=== PATIENT | female | born 1960 | race Caucasian/White ===

== ENCOUNTER → 2017-12-19 17:30 | Outpatient (CLI) | payer BC, SELFPAY ==
--- NOTE | 2017-12-19 17:35 | BI_ITS ---
MAMMOGRAPHY - BILATERAL SCREENING REASON FOR EXAM: Female, 57 years old. Routine annual screening examination. PERTINENT HISTORY: Aunt with breast cancer. TECHNIQUE: Digital bilateral breast jamie (3D mammographic acquisition) in the CC and MLO projections. 2-D mediolateral oblique (MLO) and craniocaudad (CC) views of both breasts were obtained. CAD: Full Field Digital Mammography with Computer Added Detection was performed. COMPARISON: Comparison is made with prior study dated November 07, 2016 and November 09, 2015. FINDINGS: Breast Composition: There are scattered areas of fibroglandular density. There is a questionable 6 mm slightly ill-defined nodule in the deep slightly lateral portion of the right breast as seen on the craniocaudad view. The patient will be recalled for additional views including compression spot imaging. Stable asymmetry of breast tissue were more breast tissue is seen in the retroareolar origin of the right breast as compared to the left side. Stable 7 mm well-defined nodule with a central notch in the upper lateral portion of the left breast. This is suggestive of a small lymph node. No other significant abnormalities are identified. BI/SCREENING MAMM (CAD), BILAT IMPRESSION: Proximal 6 mm nodule in the deep slightly lateral portion of the right breast seen on the craniocaudad view. The patient will be recalled for additional views including compression spot views in the craniocaudad projection and 90 degree lateral view of the right breast. Recall Side: Right Breast ASSESSMENT CATEGORY: BIRADS Category 0: Incomplete. Need additional imaging evaluation. A letter regarding these results will be sent to the patient by the facility within 30 days. Approximately 10% of breast cancers are not detected by mammography. A normal mammogram should not delay biopsy of a clinically suspicious abnormality. [id number] Electronically Signed: Jakob Sow MD at 8:32 EDT Tel [phone], Service support ,
== END ==
PROVIDERS: Family Provider Internal Medicine; PCP Internal Medicine; Visit Provider Obstetrics & Gynecology
DX: Z12.31 Encounter for screening mammogram for malignant neoplasm of breast (principal)
CPT/HCPCS: 77063; 77067

== ENCOUNTER → 2017-12-25 09:33 | Outpatient (CLI) | payer BC, SELFPAY ==
--- NOTE | 2017-12-25 09:35 | BI_ITS ---
MAMMOGRAPHY - UNILATERAL DIAGNOSTIC: RIGHT BREAST REASON FOR EXAM: Female, 57 years old. Abnormal screening mammogram. PERTINENT HISTORY: Aunt with breast cancer. TECHNIQUE: Compression spot views of the right breast as well as 90 degree lateral view were obtained. CAD: Full Field Digital Mammography with Computer Added Detection was performed. COMPARISON: Comparison is made with prior study dated December 19, 2017. FINDINGS: Breast Composition: There are scattered areas of fibroglandular density. The previously seen 6 mm nodular density in the deep lateral portion of the right breast is not as well seen at this time. Correlation with ultrasound is recommended. No other significant abnormalities are identified. BI/DIAG MAMM W/CAD, UNILAT IMPRESSION: Correlation with ultrasound of the right breast is recommended for further evaluation of the faint nodular density as described. ASSESSMENT CATEGORY: BIRADS Category 0: Incomplete. Need additional imaging evaluation. A letter regarding these results will be sent to the patient by the facility within 30 days. Approximately 10% of breast cancers are not detected by mammography. A normal mammogram should not delay biopsy of a clinically suspicious abnormality. Electronically Signed: Jakob Sow MD at 10:40 EDT Tel [phone], Service support ,
--- NOTE | 2017-12-25 10:30 | US_ITS ---
STUDY: ULTRASOUND BREAST - RIGHT REASON FOR EXAM: Female, 57 years old. Faint nodular density on the mammogram. TECHNIQUE: Axial and longitudinal images of the RIGHT breast were performed with a high resolution ultrasound transducer. COMPARISON: Comparison is made with prior mammogram done earlier in the day as well as December 19, 2017. FINDINGS: RIGHT Breast: The questionable nodular density is not seen. This most likely related to his fiber glandular tissue. There is evidence of a 1 cm x 1 cm x 0.5 cm hypoechoic density at the 1:00 position of the breast at 2 cm from the nipple. A bruise is seen at that site. This most likely represents a hematoma. US/Breast Limited Unilateral IMPRESSION: 1 cm x 1 cm x 0.5 cm fluid area suggestive of hematoma. This corresponds to the patient's bruise. ASSESSMENT CATEGORY: BIRADS Category 2: Benign. A letter regarding these results will be sent to the patient by the facility within 30 days. Electronically Signed: Jakob Sow MD at 11:11 EDT Tel [phone], Service support ,
== END ==
PROVIDERS: Family Provider Internal Medicine; PCP Internal Medicine; Visit Provider Obstetrics & Gynecology
DX: R92.8 Other abnormal and inconclusive findings on diagnostic imaging of breast (principal)
CPT/HCPCS: 76642; 77065

== ENCOUNTER → 2018-12-20 | Outpatient (CLI) | payer BC, SELFPAY ==
--- NOTE | 2018-12-20 10:43 | BI_ITS ---
MAMMOGRAPHY - BILATERAL SCREENING REASON FOR EXAM: Female, 58 years old. Routine annual screening examination. PERTINENT HISTORY: Aunt with breast cancer. TECHNIQUE: Digital bilateral breast kingston (3D mammographic acquisition) in the CC and MLO projections. 2-D mediolateral oblique (MLO) and craniocaudad (CC) views of both breasts were obtained. CAD: Full Field Digital Mammography with Computer Added Detection was performed. COMPARISON: Comparison is made with prior study December 19, 2017 and November 07, 2016. FINDINGS: Breast Composition: There are scattered areas of fibroglandular density. There are no dominant masses or suspicious calcifications. Stable asymmetry of breast tissue with more breast tissue seen in the retroareolar region of the right breast as compared to the left side. Stable small benign-appearing bilateral axillary lymph nodes. No other significant abnormalities are identified. There has been no significant change since the prior study. BI/SCREEN MAMM (CAD) W/KINGSTON BILAT IMPRESSION: Stable bilateral screening mammogram. Yearly follow-up mammogram recommended. (A) ASSESSMENT CATEGORY: BIRADS Category 2: Benign. A letter regarding these results will be sent to the patient by the facility within 30 days. Approximately 10% of breast cancers are not detected by mammography. A normal mammogram should not delay biopsy of a clinically suspicious abnormality. [id number] Electronically Signed: Jakob Sow, at 12:51 EDT , Service support ,
== END | disposition home or self-care (01) ==
LOC: OPBI 10:41
PROVIDERS: Family Provider Internal Medicine; PCP Internal Medicine; Referring Provider Obstetrics & Gynecology; Visit Provider Obstetrics & Gynecology
DX: Z12.31 Encounter for screening mammogram for malignant neoplasm of breast (principal)
CPT/HCPCS: 77063; 77067

== ENCOUNTER → 2019-10-08 | Outpatient (CLI) | payer BC, SELFPAY ==
[2019-10-08 18:49] LABS: Vitamin D,25 Hydroxy 26.3 ng/mL
[2019-10-16 15:37] LABS: HPV APTIMA, High Risk Negative (Negative)
== END | disposition home or self-care (01) ==
LOC: WOBLAB 16:16
PROVIDERS: PCP Internal Medicine; Visit Provider Obstetrics & Gynecology
DX: E55.9 Vitamin D deficiency, unspecified (principal); Z12.4 Encounter for screening for malignant neoplasm of cervix
CPT/HCPCS: 36415; 82306; 87624; 88175; G0145

== ENCOUNTER → 2019-12-23 | Outpatient (CLI) | payer BC, SELFPAY ==
--- NOTE | 2019-12-23 15:19 | BI_ITS ---
MAMMOGRAPHY - BILATERAL SCREENING REASON FOR EXAM: Female, 59 years old. Routine annual screening examination. PERTINENT HISTORY: Aunt with breast cancer. TECHNIQUE: Digital bilateral breast kingston (3D mammographic acquisition) in the CC and MLO projections. 2-D mediolateral oblique (MLO) and craniocaudad (CC) views of both breasts were obtained. CAD: Full Field Digital Mammography with Computer Added Detection was performed. COMPARISON: Comparison is made with prior study dated 12/20/2018 and 12/19/2017. FINDINGS: Breast Composition: There are scattered areas of fibroglandular density. There are no dominant masses or suspicious calcifications. Stable asymmetry of breast tissue were more breast tissue is seen in the retroareolar region of the right breast as compared to the left side. Stable small benign-appearing bilateral axillary lymph nodes. No other significant abnormalities are identified. There has been no significant change since the prior study. BI/SCREEN MAMM (CAD) W/KINGSTON BILAT IMPRESSION: Stable bilateral screening mammogram. Yearly follow-up mammogram recommended. (A) ASSESSMENT CATEGORY: BIRADS Category 2: Benign. A letter regarding these results will be sent to the patient by the facility within 30 days. Approximately 10% of breast cancers are not detected by mammography. A normal mammogram should not delay biopsy of a clinically suspicious abnormality. [id number] Electronically Signed: Jakob Sow, at 8:27 EDT , Service support ,
== END | disposition home or self-care (01) ==
LOC: OPBI 15:17
PROVIDERS: PCP Internal Medicine; Referring Provider Obstetrics & Gynecology; Visit Provider Obstetrics & Gynecology
DX: Z12.31 Encounter for screening mammogram for malignant neoplasm of breast (principal)
CPT/HCPCS: 77063; 77067

== ENCOUNTER 2020-01-13 09:57 | Day surgery (SDC) | payer BC, SELFPAY ==
[2020-01-13] VITALS (7 sets, daily range): BP systolic 146–179; BP diastolic 70–90; PULSE 52–59; RESP 16–18; TEMP 36.6–36.8; O2SAT 99–100
[2020-01-13] MEDS: Lactated Ringers 1,000 ML 100 ML IV (10:29)
--- NOTE | 2020-01-13 11:12 | HP.PCM_ITS ---
History of Present Illness Date of Admission: 01/13/20 The patient is a 59 year old F presents for screening colonoscopy. Past Medical/Surgical History - Planned Operation Planned Operative Procedure/s: cscope open access Date of Operative Procedure: 01/13/20 Permit Signed: No S.O.S: No Is This Patient Having a Total Joint: No - Previous Hospitalizations/Surgeries HX Hospitalizations: No HX of Surgeries: right hand surgery. left ankle surgery. gallbladder Any Problems With Anesthesia: Yes - n,v You/Your Family Experience Fever (Hyperthermia) With Anes: No Cholinesterase deficiency: No - Cardiovascular Hx Chest Pain within Last 2 months: No Hx of Irregular Heartbeat and/or Afib: No - palpitations prn Hx Heart Attack: No Hx Congestive Heart Failure: No Hx Rheumatic Fever: No Hx Hypertension: No - questionable pulmonary htn Hx Internal Defibrillator: No Hx Pacemaker: No Hx Cardiac Catheterization: No Hx Cardiac Surgery/Stents/Etc.: No Hx Stress Test: Yes - 2014 and echo 2014 HX Edema: Yes - lower legs prn Hx Pain in Legs when Walking/Leg Cramps: No - Respiratory Chronic Cough: No HX of Shortness of Breath: Yes - slightly sob with 2 flights of stairs Hoarseness: No Hx Chronic Obstructive Pulmonary Disease (COPD): No Hx Asthma: No Hx Emphysema: No Hx Sleep Apnea: No Hx Oxygen Use at Home: No Hx Respiratory Tract Infection/Cold (presently): No Do You Snore Loudly (louder than talking or can be heard): Yes Do You Often Feel Tired/ Fatigued/ Sleepy Dring Daytime?: No Has Anyone Observed You Stop Breathing During Sleep?: No Result (for STOP score): Negative Hx Smoking: Yes - quit at age 25 Smoking Status: Former smoker - Gastrointestinal Hx Gastroesophageal Reflux: Yes - in the past Controlled With Meds: No Hx Gastrointestinal Disorders: No Hx Gastrointestinal Bleed: No Hx Ulcer: No Hx Hiatal Hernia: No Difficulty Chewing/Swallowing: No Recent Onset of Swallowing Problems: No Special diet followed at home: No Hx Unplanned Weight Loss of 20#: No HX Unplanned Weight Gain of 20#: No - Neurological Hx Seizures: No HX Syncope/Blackout Spells/Unconsciousness: No Hx CVA/Stroke: No Hx Transient Ischemic Attacks (TIA): No Hx Multiple Sclerosis: No Hx Parkinson's Disease: No Hx Head/Neck Injury: Yes - concussion 2007 Hx Headaches: No Hx Back Injury/Pain: No Recent Onset of Speech Difficulty: No Restless Legs: No Does patient have nerve stimulator: No Patient instructed to have device shut off: No Rep notified?: No - Blood Disorder Hx Leukemia: No Bleeding Tendencies: No Hx Deep Vein Thrombosis: No Hx High Cholesterol: No Blood Transmitted Disease: No Hx Hepatitis: No Hx Cirrhosis: No Hx Anemia: No Hx Blood Disorders: No - Reproduction : No Is Patient Lactating: No Hx Hysterectomy: No Hx Tubal Ligation: No Are You Post Menopause: Yes - Genitourinary Hx Renal Disease: No - incontinence - Musculoskeletal Hx Arthritis: No Hx Rheumatoid Arthritis: No Hx Gout: No Recent Onset of an Orthopedic Problem: No - Endocrine Hx Diabetes: No Thyroid Disease: No Hx Steroid Therapy: No - Psycho/Social Hx Substance Use: Yes - marijuna use in the past Hx Alcohol Use: Yes - social Hx Anxiety: Yes - no meds Hx Depression: No Mental Illness: No Hx Dementia: No - Miscellaneous Hx Cancer: No Recent Exposure to Contagious Disease: No Active MRSA: No Hx of C-Diff: No Any Loose Teeth: No Allergies acetaminophen [From Vicodin] Adverse Reaction (Verified 01/13/20 10:21) Vomiting erythromycin base Adverse Reaction (Verified 01/13/20 10:21) Nausea hydrocodone [From Vicodin] Adverse Reaction (Verified 01/13/20 10:21) Vomiting - Discharge Is Pt Admitted From a Skilled Nursing, or a Intermediate: No After D/C, Where Do you Plan to Go: Return Home - Physical Exam Vitals/I&O's: Vital Signs Temp Pulse Resp Pulse Ox 98.2 F 59 L 16 95 01/13/20 10:22 01/13/20 10:22 01/13/20 10:22 01/13/20 10:22 Oxygen Delivery Method Room Air Weight: 208 lb 12.444 oz Body Mass Index (BMI) 35.8 General: Alert, Oriented x3 Lungs: Clear to auscultation Cardiovascular: Regular rate, Regular Rhythm, No murmurs Abdomen: Bowel Sounds Present, Soft, Non Tender, Non-Distended Current Medications Lactated Ringer's () 1,000 mls @ 100 mls/hr IV .Q10H PATSY Last Admin: 01/13/20 10:29 Dose: 100 mls/hr Documented by: Assessment/Plan Assessment: Screening colonoscopy Plan: Colonoscopy Surgery Risks - Colonoscopy Risks Include but are not Limited To: Risks include but are not limited to: Bleeding, perforation requiring further surgery, inability to complete colonoscopy requiring barium enema.
--- NOTE | 2020-01-13 11:16 | OP.COLON_ITS ---
Patient Name: Rachna Sears Procedure Date: 01/13/2020 10:37 AM Date of : 1960 Age: 59 Procedure: Colonoscopy Indications: Screening for colorectal malignant neoplasm Providers: Mitchell Lassiter MD Referring MD: Madelyn Sandoval Medicines: See the Anesthesia note for documentation of the administered medications Patient Profile: This is a 59 year old female. Refer to note in patient chart for documentation of history and physical. Last Colonoscopy: none. The patient's first colonoscopy is today. Complications: No immediate complications. Procedure: Pre-Anesthesia Assessment: - Prior to the procedure, a History and Physical was performed, and patient medications and allergies were reviewed. The patient's tolerance of previous anesthesia was also reviewed. The risks and benefits of the procedure and the sedation options and risks were discussed with the patient. All questions were answered, and informed consent was obtained. Prior Anticoagulants: The patient has taken no previous anticoagulant or antiplatelet agents. ASA Grade Assessment: II - A patient with mild systemic disease. After reviewing the risks and benefits, the patient was deemed in satisfactory condition to undergo the procedure. After I obtained informed consent, the scope was passed under direct vision. Throughout the procedure, the patient's blood pressure, pulse, and oxygen saturations were monitored continuously. The adult colonoscope was introduced through the anus and advanced to the cecum, identified by appendiceal orifice and ileocecal valve. The colonoscopy was performed without difficulty. The patient tolerated the procedure well. The quality of the bowel preparation was good. Scope In: 10:54:04 AM Scope Withdrawal Time 0 hours 8 minutes 38 seconds Scope Out: 11:10:25 AM Total Procedure Duration Time 0 hours 16 minutes 21 seconds Findings: Scattered small-mouthed diverticula were found in the sigmoid colon, descending colon and transverse colon. No biopsies or other specimens were collected for this exam. Non-bleeding internal hemorrhoids were found during retroflexion. The hemorrhoids were mild and small. The exam was otherwise without abnormality. Impression: - Diverticulosis in the sigmoid colon, in the descending colon and in the transverse colon. No specimens collected. - Non-bleeding internal hemorrhoids. - The examination was otherwise normal. Recommendation: - Discharge patient to home. - Resume previous diet. - Continue present medications. - Repeat colonoscopy in 10 years for screening purposes. - Return to primary care physician (date not yet determined). Procedure Code(s): --- Professional --- 10145, Colonoscopy, flexible; diagnostic, including collection of specimen(s) by brushing or washing, when performed (separate procedure) Diagnosis Code(s): --- Professional --- Z12.11, Encounter for screening for malignant neoplasm of colon K64.8, Other hemorrhoids K57.30, Diverticulosis of large intestine without perforation or abscess without bleeding CPT copyright 2017 [employer]. All rights reserved. The codes documented in this report are preliminary and upon maternal fetal physician review may be revised to meet current compliance requirements. MD Mitchell Silva MD 01/13/2020 11:15:18 AM This report has been signed electronically. Number of Addenda: 0 Note Initiated On: 01/13/2020 10:37 AM
--- NOTE | 2020-01-13 11:16 | OP.CCLET_ITS ---
01/13/2020 Madelyn Sandoval [address] [place] [address] Re : Colonoscopy procedure for Rachna Sears Dear Dr. Sandoval This procedure was performed on Monday, January 13, 2020. My impressions and recommendations are as follows: Impressions : - Diverticulosis in the sigmoid colon, in the descending colon and in the transverse colon. No specimens collected. - Non-bleeding internal hemorrhoids. - The examination was otherwise normal. Recommendations : - Discharge patient to home. - Resume previous diet. - Continue present medications. - Repeat colonoscopy in 10 years for screening purposes. - Return to primary care physician (date not yet determined). My findings are described in the full procedure note, which is enclosed. If I can be of further assistance, please feel free to contact me at Doctor phone number(s): , Fax: [phone], Work: . Sincerely, MD Mitchell Silva MD 01/13/2020 11:15:18 AM This report has been signed electronically.
== END 2020-01-13 12:09 | disposition home or self-care (01) ==
LOC: EN 09:58
PROVIDERS: Anesthesiology; PCP Internal Medicine; Referring Provider Internal Medicine; Visit Provider Surgery
PROC: 0DJD8ZZ Inspection of Lower Intestinal Tract, Via Natural or Artificial Opening Endoscopic (ICD-10-PCS; CPT 45378; principal; 2020-01-13 10:55)
DX: Z12.11 Encounter for screening for malignant neoplasm of colon (principal); K57.30 Diverticulosis of large intestine without perforation or abscess without bleeding; K64.8 Other hemorrhoids; Z20.828 Contact with and (suspected) exposure to other viral communicable diseases; Z87.891 Personal history of nicotine dependence
CPT/HCPCS: 45378; 87635; C9803; J7120; U0003

== ENCOUNTER → 2020-12-23 11:54 | Outpatient (CLI) | payer BC, SELFPAY ==
--- NOTE | 2020-12-23 11:55 | BI_ITS ---
MAMMOGRAPHY - BILATERAL SCREENING REASON FOR EXAM: Female, 60 years old. Routine annual screening examination. PERTINENT HISTORY: Aunt with breast cancer. TECHNIQUE: Digital bilateral breast kingston (3D mammographic acquisition) in the CC and MLO projections. 2-D mediolateral oblique (MLO) and craniocaudad (CC) views of both breasts were obtained. CAD: Full Field Digital Mammography with Computer Added Detection was performed. COMPARISON: Comparison is made with prior study of 12/23/2019 and 12/20/2018. FINDINGS: Breast Composition: The breasts are heterogeneously dense, which may obscure small masses. There are no dominant masses or suspicious calcifications. Once again, there is stable asymmetry of breast tissue where more breast tissue is seen in the retroareolar region of the right breast as compared to the left side. Stable small benign-appearing bilateral axillary lymph nodes. No other significant abnormalities are identified. There has been no significant change since the prior study. BI/SCRN MAMM (CAD)W/KINGSTON BILAT IMPRESSION: Stable bilateral screening mammogram. Yearly follow-up mammogram recommended. (A) ASSESSMENT CATEGORY: BIRADS Category 2: Benign. A letter regarding these results will be sent to the patient by the facility within 30 days. Approximately 10% of breast cancers are not detected by mammography. A normal mammogram should not delay biopsy of a clinically suspicious abnormality. [id number] Electronically Signed: Jakob Sow MD at 13:25 EDT , Service support ,
== END ==
PROVIDERS: PCP Internal Medicine; Referring Provider Obstetrics & Gynecology; Visit Provider Obstetrics & Gynecology
DX: Z12.31 Encounter for screening mammogram for malignant neoplasm of breast (principal)
CPT/HCPCS: 77063; 77067

== ENCOUNTER 2021-02-24 12:09 | Outpatient (CLI) | payer BC, SELFPAY ==
[2021-02-24 12:31] VITALS: BP 151/72; PULSE 83; RESP 16; TEMP 37.5; O2SAT 98; BMI 37.2
[2021-02-24] MEDS: 0.9% Saline Lock 10 ML Syringe IV (12:31)
[2021-02-24 13:08] VITALS: BP 146/94; PULSE 81; RESP 16; TEMP 36.6; O2SAT 99
[2021-02-24 14:02] VITALS: BP 135/81; PULSE 66; RESP 16; TEMP 36.6; O2SAT 98
== END 2021-02-24 14:10 | disposition home or self-care (01) ==
LOC: MS3OUT 12:12 → MS3 12:12
PROVIDERS: PCP Internal Medicine; Referring Provider Nurse Practitioner Adult Health; Visit Provider Nurse Practitioner Adult Health
DX: Z23 Encounter for immunization (principal); U07.1 COVID-19
CPT/HCPCS: J7050; M0245; Q0245; A4216

== ENCOUNTER → 2021-12-24 | Outpatient (CLI) | payer BC, SELFPAY ==
--- NOTE | 2021-12-24 07:47 | BI_ITS ---
MAMMOGRAPHY - BILATERAL SCREENING REASON FOR EXAM: Female, 61 years old. Routine annual screening examination. PERTINENT HISTORY: Aunt with breast cancer. TECHNIQUE: Digital bilateral breast kingston (3D mammographic acquisition) in the CC and MLO projections. 2-D mediolateral oblique (MLO) and craniocaudad (CC) views of both breasts were obtained. CAD: Full Field Digital Mammography with Computer Added Detection was performed. COMPARISON: Comparison is made with prior study 12/23/2020 12/23/2019. FINDINGS: Breast Composition: The breasts are heterogeneously dense, which may obscure small masses. There are no dominant masses or suspicious calcifications. Stable asymmetry of breast tissue where more breast tissue is seen in the retroareolar region of the right breast as compared to the left side. During bilateral axillary lymph nodes. No other significant abnormalities are identified. There has been no significant change since the prior study. BI/SCRN MAMM (CAD)W/KING[place]ON BILAT IMPRESSION: Stable bilateral screening mammogram. Yearly follow-up mammogram recommended. (A) ASSESSMENT CATEGORY: BIRADS Category 2: Benign. A letter regarding these results will be sent to the patient by the facility within 30 days. Approximately 10% of breast cancers are not detected by mammography. A normal mammogram should not delay biopsy of a clinically suspicious abnormality. [id number] Electronically Signed: Jakob Sow MD at 8:59 EDT ,
== END | disposition home or self-care (01) ==
LOC: OPBI 07:46
PROVIDERS: PCP Internal Medicine; Visit Provider Student in an Organized Health Care Education/Training Program
DX: Z12.31 Encounter for screening mammogram for malignant neoplasm of breast (principal)
CPT/HCPCS: 77063; 77067

== ENCOUNTER 2022-11-24 09:51 | Day surgery (SDC) | payer BC, SELFPAY ==
[2022-11-24] VITALS (7 sets, daily range): BP systolic 130–154; BP diastolic 51–67; PULSE 49–56; RESP 16; TEMP 36.1; O2SAT 98–100; BMI 38.0
[2022-11-24] MEDS: Lactated Ringers 1,000 ML 15 ML IV (10:42)
--- NOTE | 2022-11-24 11:26 | PCM.HP.BLA ---
History and Physical Date of Admission: 11/24/22 Chief complaint: Postmenopausal bleeding History present illness: 62-year arrives for scheduled hysteroscopy dilation curettage. No medical changes since last seen. All questions answered and consent signed. Obstetric history: with a history of a section Past medical history: None Medications: None Allergies: Erythromycin, Vicodin Past surgical history: Hand, ankle, Ema Karolina, cholecystectomy, section Social history: Former smoker, denies alcohol or drug use Family history: Denies history DVT or PE Review of systems: Besides above pertinent positives a full review of systems was performed and found to be negative Physical exam: Vitals: Blood pressure 154/51 pulse 52 respiratory rate 16 temperature 97.0 ?F SPO2 90% on room air General: Normal-appearing no acute distress HEENT: Normocephalic/atraumatic no cervical lymphadenopathy Cardiac/respiratory: No use of accessory muscles, nonlabored breathing Abdomen: Soft, nontender, nondistended Extremities: No peripheral edema normal peripheral pulses Psych: Normal affect normal demeanor nonpressured speech Assessment and plan: 62-year-old scheduled for hysteroscopy, dilation and curettage. Educated patient on risk benefits alternatives of procedure include but are not limited to visceral or vascular injury, prolonged hospitalization, blood loss need for transfusion, reoperation. Patient state understanding wish to proceed. All questions were answered and consent was signed.
--- NOTE | 2022-11-24 11:50 | EMB_PTH ---
PATIENT: JUMA MACEDO LOC: [facility] [place] U#:[id number] AGE/SX: 62/F ROOM: RE11/24/[address]: Dr. Roshan Esparza MD : 1960 BED: DIS: 11/24/2022 SPEC #: [id number] RECD: 11/24/22 17:11 STATUS: TALITA RESimi #: [id number] MARK: 11/24/22 11:[address]: Roshan Esparza DEPT: SURGICAL PATHOLOGY RECD BY: Tammi Dobbins ENTERED: 11/25/22 09:14 SP TYPE: ENDOM BX/C LOBITO DR: Dr. Madelyn Sandoval DO Tissues: Endometrium, NOS Procedures: Surgery Specimen Level IV HEADER OPERATION: Hysteroscopy, dilation and curettage PRE-OP DIAGNOSIS: Postmenopausal bleeding TISSUE SUBMITTED: Endometrial curettings MICROSCOPIC DIAGNOSIS Endometrium, curettings: Scant strips of benign superficial glandular mucosa. Rare strips of benign superficial squamous mucosa. AM:raj 11/29/2022 MICROSCOPIC DESCRIPTION Slides are reviewed. GROSS DESCRIPTION Received in fixative is one container labeled with the patient's name and designated endometrial curettings. The specimen consists of multiple fragments of hemorrhagic soft tissue mixed with mucoid tissue that in aggregate measure 2.5 x 1.5 x 0.2 cm. The specimen is totally submitted in one cassette. / SJ:raj 11/25/2022 TC:5 CPT: 22421
--- NOTE | 2022-11-24 12:37 | DCINST_ITS ---
Discharge Instructions Diet Discharge Diet: No restrictions Activity Discharge Activity: Return to Normal Activity and May Shower May resume sexual activity in: 6-8 weeks Weight Bearing Status: Weight bearing as tolerated Dressing / Incision Call your doctor if your incision/area has: Continuous Slow Oozing and Foul Smelling Discharge Call your doctor if you observe: Fever of 101 or Higher, Shortness of breath and Chest pain Follow Up Care Please Follow Up With: Roshan Esparza MD When: 2 weeks postoperatively Test Results: Test results from this visit will be discussed in further detail at your follow- up appointment, if applicable. Discharge Plan Admission Attending Provider: Roshan Esparza Primary Care Provider: Madelyn Sandoval Discharge Orders/Prescriptions Prescriptions: No Action docusate sodium 100 MG capsule 100 mg PO QHS milk thistle seed extract 175 MG capsule 175 mg PO DAILY L.acidoph, paracasei,B. lactis 1 EACH capsule 1 ea PO QHS choline bitartrate 300 MG tablet extended release 2 tab PO DAILY Cholecalciferol (Vitamin D3) [Vitamin D3] 5,000 UNIT capsule 5,000 unit PO DAILY Gastrofiber 1 cap PO DAILY Min-Chex 1 cap PO DAILY multivitamin [Daily Multi-Vitamin] Tablet 2 tab PO DAILY omega 0-lcv-hiv-fish oil 900 (300-647) mg capsule,delayed release(DR/EC) 1 cap PO DAILY Referrals / Follow Up: Madelyn Sandoval DO [Primary Care Provider] - Disposition Disposition (needs filled in before D/C Order can be placed): Home, Self Care
--- NOTE | 2022-11-24 12:38 | PCM.OPRPT ---
Report of Operation Date of Procedure: 11/24/22 Pre-Operative Diagnosis: Postmenopausal bleeding Post-Operative Diagnosis: Postmenopausal bleeding Surgery/Procedure Performed:: Hysteroscopy, dilation curettage Description of Surgical Findings:: Surgeon: Roshan Esparza MD Anesthesia: MAC EBL: 5 cc Urine output: 100 cc none IV fluids: 400 cc Complications: None Specimen: Endometrial curettings Findings: Hysteroscopy revealed thickened irregular endometrial lining. Consent: Patient with postmenopausal bleeding elects for hysteroscopy, dilation curettage. Patient understands risk of the procedure include but are not limited to visceral or vascular injury, prolonged hospitalization, blood loss need for transfusion, reoperation. Patient state understanding wish to proceed. All questions were answered and consent was signed. Procedure: Patient was brought back to the OR where MAC anesthesia was found to be adequate. Patient was prepared and draped in a dorsolithotomy position with yellowfin stirrups. A weighted speculum placed in the posterior aspect of the vagina and cervical dilators were used to dilate cervix. Hysteroscope was inserted and above findings were noted. Sharp endometrial curettings were performed in all quadrants of the uterus and sent to pathology. Good hemostasis was noted. All counts were correct x2. Patient tolerated procedure well and was brought to recovery in stable condition.
== END 2022-11-24 13:45 | disposition home or self-care (01) ==
LOC: SDC 09:52 → AC 10:16
PROVIDERS: PCP Internal Medicine; Referring Provider Obstetrics & Gynecology; Visit Provider Obstetrics & Gynecology
PROC: 0UDB8ZZ Extraction of Endometrium, Via Natural or Artificial Opening Endoscopic (ICD-10-PCS; CPT 58558; principal; 2022-11-24 11:40)
DX: N95.0 Postmenopausal bleeding (principal); Z87.891 Personal history of nicotine dependence
CPT/HCPCS: 58558; 00952; 88305; J7120

== ENCOUNTER → 2023-03-02 | Outpatient (CLI) | payer BC, SELFPAY ==
--- NOTE | 2023-03-02 08:56 | ECHOCS_ITS ---
Reason For Study: PHTN Procedure This was a 2D Doppler, Color Flow transthoracic echocardiogram. The study was technically difficult. Contrast injection was performed. Exam performed in department. Left Ventricle Normal size and thickness. The left ventricular ejection fraction is 65 %. Stage 1 diastolic dysfunction. Right Ventricle Normal right ventricle. Atria The left atrium is mildly enlarged. Normal right atrium. Mitral Valve Mild (1+) mitral valve insufficiency. Tricuspid Valve Right ventricular systolic pressure estimated to be 34 mmHg. Mild tricuspid valve insufficiency. Pulmonic Valve The pulmonic valve is not well visualized. Pericardium/Pleural No pericardial effusion. Medication 22 gauge I.V. with prn adaptor inserted into left arm. Diluted definity 2.5ml given slow IV push to enhance endocardial definition. MMode/2D Measurements & Calculations LVIDd: 5.3 cm IVSd: 0.83 cm Ao root diam: 3.1 cm LVIDs: 3.9 cm LVPWd: 1.0 cm LA dimension: 4.2 cm RVDd: 3.5 cm FS: 25.8 % LAV(MOD-bp): 47.4 ml LVAd ap4: 34.7 cm2 SV(MOD-sp4): 68.9 ml LAV(MOD-bp) Indexed: 23.7 ml/m2 LVLd ap4: 8.0 cm LAV(MOD-sp2): 48.5 ml EDV(MOD-sp4): 124.0 ml LAV(MOD-sp4): 43.2 ml EDV(sp4-el): 128.4 ml LVAs ap4: 20.7 cm2 LVLs ap4: 6.4 cm ESV(MOD-sp4): 55.1 ml ESV(sp4-el): 56.9 ml EF(MOD-sp4): 55.5 % EF(sp4-el): 55.6 % SV(sp4-el): 71.4 ml LA A4 area: 16.6 cm2 RA A4 area: 16.2 cm2 TAPSE: 2.4 cm Time Measurements MV dec time: 0.17 sec Doppler Measurements & Calculations MV E max samuel: 65.1 cm/sec Lat Peak E' Samuel: 9.2 cm/sec Med Peak E' Samuel: 8.5 cm/sec MV A max samuel: 100.3 cm/sec E/E' lat: 7.1 E/E' med: 7.6 MV E/A: 0.65 MV V2 max: 112.2 cm/sec MV P1/2t max samuel: 92.8 cm/sec Ao V2 max: 139.0 cm/sec MV max P.0 mmHg MV P1/2t: 66.8 msec Ao max P.7 mmHg MV V2 mean: 49.2 cm/sec MV dec slope: 407.0 cm/sec2 Ao V2 mean: 97.2 cm/sec MV mean P.2 mmHg Ao mean P.3 mmHg MV V2 VTI: 33.5 cm MVA(P1/2t): 3.3 cm2 Ao V2 VTI: 37.8 cm AV (velocity ratio): 0.76 LV V1 max: 113.6 cm/sec PA V2 max: 127.9 cm/sec TR max samuel: 246.4 cm/sec LV V1 max P.2 mmHg PA V2 mean: 79.0 cm/sec TR max P.3 mmHg LV V1 mean P.7 mmHg LV V1 mean: 76.4 cm/sec LV V1 VTI: 28.7 cm ECHO/Echo Complete W/ Contrast Interpretation Summary The left ventricular ejection fraction is 65 %. Stage 1 diastolic dysfunction. Right ventricular systolic pressure estimated to be 34 mmHg. Mild tricuspid valve insufficiency. The left atrium is mildly enlarged. Mild (1+) mitral valve insufficiency. Ordering Physician: Madelyn Sandoval Referring Physician: Madelyn Sandoval Performed By: Ruslan Beasley RCS
== END | disposition home or self-care (01) ==
LOC: CVS 08:54
PROVIDERS: PCP Internal Medicine; Referring Provider Internal Medicine; Visit Provider Internal Medicine
DX: I27.20 Pulmonary hypertension, unspecified (principal)
CPT/HCPCS: 93306; Q9957; A4216; C8929

== ENCOUNTER → 2023-04-05 | Outpatient (CLI) | payer BC, SELFPAY ==
--- NOTE | 2023-04-05 09:33 | BD_ITS ---
STUDY: DUAL ENERGY X-RAY ABSORPTIOMETRY / DXA REASON FOR EXAM: Female, 62 years old. [id number] TECHNIQUE: Bone Mineral Density (BMD) measurements of lumbar spine and bilateral hips were obtained. COMPARISON: None. FINDINGS: Lumbar Spine (L1-L4): g/cm2 (1.049) / T-score (0.0) / Z-score (1.8) Findings are suggestive of normal bone density with a low fracture risk. Left Femur Total: g/cm2 (0.971) / T-score (0.2) / Z-score (1.4) Left Femoral Neck: g/cm2 (0.724) / T-score (-1.1) / Z-score (0.4) Right Femur Total: g/cm2 (0.919) / T-score (-0.2) / Z-score (1.0) Right Femoral Neck: g/cm2 (0.749) / T-score (-0.9) / Z-score (0.6) BD/Dexa Bone Density Study IMPRESSION: The patient is considered osteopenic as outlined below according to World Hood Organization (WHO) criteria with a low fracture risk. Reference Information: The T-score is the number of standard deviations above or below the standard which is normal for young adults at their peak bone mineral density. The World Health Organization (WHO) interprets the T-scores as follows: Above -1 Normal bone density Between -1 and -2.5 Osteopenia Equal to / or below -2.5 Osteoporosis As a practical clinical guideline, osteopenia may be graded as follows: Mild -1 through -1.5 Moderate -1.6 through -2.0 Severe -2.1 through -2.4 The Z-score is the number of standard deviations above or below age-matched controls. A Z-score of less than -1.5 would be considered abnormal. References: 1. NIH Osteoporosis and Related Bone Diseases www osteo.org 2. International Society for Clinical Densitometry www iscd.org 3. National Osteoporosis Foundation www nof.org Electronically Signed: Jakob Sow MD at 13:56 EST ,
== END | disposition home or self-care (01) ==
LOC: OPBD 09:26
PROVIDERS: PCP Internal Medicine; Referring Provider Internal Medicine; Visit Provider Internal Medicine
DX: Z78.0 Asymptomatic menopausal state (principal)
CPT/HCPCS: 77080

== ENCOUNTER → 2025-01-20 | Outpatient (CLI) | payer MEDICARE, SELFPAY ==
--- NOTE | 2025-01-20 10:41 | RAD_ITS ---
PROCEDURE: SHOULDER MIN 2 VIEWS 01/20/2025 REASON FOR EXAM: SHOULDER PAIN,RIGHT TECHNIQUE: Procedure Code: RADSH Modality: DX Procedure: SHOULDER 4 VIEWS Laterality: Right COMPARISON: None provided RAD/Shoulder min 2 Views IMPRESSION: Mild right acromioclavicular joint degenerative changes are seen. Calcifications superior to the right humeral head and adjacent to the right hum eral head greater tuberosity most likely represent calcific tendinosis. The right glenohumeral joint is otherwise unremarkable in appearance No acute fracture or dislocation is seen. Reading Location: [place] [id number]
[2025-01-20 13:04] LABS: Ferritin 127 ng/mL (22-378); Hepatitis C Antibody Nonreactive (Nonreactive); Vitamin B12 397 pg/mL (180-914)
== END | disposition home or self-care (01) ==
LOC: MTLAB 10:31
PROVIDERS: PCP Internal Medicine; Referring Provider Internal Medicine; Visit Provider Internal Medicine
DX: Z11.59 Encounter for screening for other viral diseases (principal); R53.83 Other fatigue; M25.511 Pain in right shoulder
CPT/HCPCS: 36415; 73030; 82607; 82728; 86803

== ENCOUNTER 2025-03-14 10:30 | Outpatient (RCR) | payer MEDICARE, SELFPAY ==
--- NOTE | 2025-02-10 19:11 | HP.PTEVAL ---
Patient's Visit Information Visit Information Visit Information: JUMA MACEDO is a 64 year old F referred to Physical Therapy by Dr. Madelyn Sandoval DO with a diagnosis of R SHLD PAIN. Date of Evaluation: 02/10/25 Physical Therapist: Kelsey Walker PT, Cert MDT Visit Plan Frequency: 2-3x /Week Duration: 4-6 Weeks Plan: 1. INITIALLY WORK ON RESTORING PAIN-FREE ROM R SHLD. - TABLE/WALL SLIDES INTO FLEXION/SCAPTION, CROSS BODY STRETCH, PEC DOORWAY STRETCH. 2. BEGIN GENTLE TENDON LOADING (AVOID ANY SHARP PAIN, PAIN < OR = 2/10) - ISO ER (ELBOW AT SIDE), ISO IR, ISO SCAPTION, ISO EXTENSION. 3. IMPROVE SCAPULAR MECHANICS - SCAP SQUEEZES, SEATED OR WALL "PUSH-UP PLUS", LOWER TRAP SETS - "Y'S" WITHOUT WEIGHT. AFTER 2 WEEKS (2-6 WKS) WORK ON PROGRESSING MECHANICAL LOAD WITH THERABANDS TO PROMOTE TENDON HEALING. Subjective Subjective: Work/Leisure: WORKING PART-TIME ABOUT 16 HRS A WEEK FOR [employer] (WAS OFF ABOUT 1.5 YEARS) Disability: NO Present symptoms: R SHLD PAIN. INTERMITTENT R ARM AND FOREARM PAIN/ACHE NUMBNESS AND TINGLING. DENIES HAND SYMPTOMS. NO NECK PAIN. Present since: OVER A YEAR AGO. Getting Better, Getting Worse or Staying the Same: STAYING THE SAME Pain Scale: Worst - 8/10 Least - 0/10 Currently: /10 Commenced as a result of: NO APPARENT REASON Symptoms at onset: R SHLD ACHING Worse: REACHING, STIRRING, GETTING THINGS OUT OF KETTLE AT WORK, WAKING UP WITH ARM OVER-HEAD, REACHING FOR THE RADIO, EVENING IS WORSE Better: BLUE EMU, ICE, [place], MOVEMENT IS BETTER THAN STILL. Disturbed sleep: YES Previous history/Previous treatment: EPISODE ABOUT 25 YEARS AGO THEN RESOLVED WITH WITH ANTI-INFLAMMATORY VIOXX UNTIL ABOUT A YEAR OR SO AGO. This episode: NONE Accidents: NO Unexplained weight loss: NO Imaging: IMPRESSION: Mild right acromioclavicular joint degenerative changes are seen. Calcifications superior to the right humeral head and adjacent to the right humeral head greater tuberosity most likely represent calcific tendinosis. The right glenohumeral joint is otherwise unremarkable in appearance No acute fracture or dislocation is seen. PMH/Recent major surgery: H/O NECK PAIN FROM WORK RELATED ACTIVITES - ONE CHIROPRACTIC VISIT. MAINLY SELF TREATED. OSTEOPENIA - NEW PER PATIENT REPORT Anxiety Marijuana use Alcohol use History of steroid therapy Bladder disease Fatty liver Injury of head and neck Heartburn Shortness of breath on exertion Former smoker History of diverticulitis History of edema History of Holter monitoring History of echocardiogram History of stress test History of irregular heartbeat Hx of fracture of ankle Hx of fracture of wrist Encounter for screening for COVID-19 Hx of foot surgery Objective Objective: Sitting Posture/Standing Posture: FH. RSHL'S - L>R. NO TORTICOLLIS. Active Correction of posture: ABLE TO PARTIALLY CORRECT BUT NOT MAINTAIN - NE Other Observations: INDEP GAIT AND TRANSFERS. Sensory deficit: JENNIFER UE LIGHT TOUCH SENSATION IS GROSSLY INTACT AND SYMMETRICAL ROM deficit: ACTIVE ROM: R SHLD [id number] DEG FLEX, 98 DEG ABD. SUPINE PASSIVE FLEXION 151 DEG, ABD 121 DEG, ER 90, IR 70 DEG WITH 80 DEG ABD. ABLE TO ELEVATE L SHLD TO 142 DEG FLEX - DENIES PAIN. Motor deficit: R SHLD FLEX 3-/5, ABD 2+/5, IR 4-/5, ER 4-/5, ELBOW 5/5, R MERCHANT PATROLLER 40 LBS. L SHLD 4-/5, ELBOW 5/5, MERCHANT PATROLLER 40 LBS. R HAND DOMINANT. Cervical Mvmt Loss: Flex: NIL Pro: NIL Ext: MOD Ret: MOD RSB: NIL LSB: NIL R Rot: MIN L Rot: NIL CERVICAL ROM HAS NO EFFECT ON R UE SX'S. Postural strength: POOR Balance/Special Test Scores Quick DASH Score: 13.6350 Goals Goal 1:: DECREASE C/O R SHLD PAIN BY AT LEAST 50% TO EASE ADL AND WORK FUNCTION Goal Time Frame: 4-6 Weeks Goal 2:: INCREASE PAINFREE R SHLD ROM ALL PLANES TO IMPROVE ADL AND WORK FUNCTION Goal Time Frame: 4-6 Weeks Goal 3:: IMPROVE R SHLD STRENGTH BY 1/2 GRADE OF ALL EFFECTED MUSCULATURE. Goal Time Frame: 4-6 Weeks Goal 4:: INDEP HEP Goal Time Frame: 4-6 Weeks Rehabilitation Potential Physical Therapy Diagnosis: R SHLD PAIN, STIFFNESS AND WEAKNESS ESPECIALLY ABDUCTION. Rehabilitation Potential: Good Anticipated Interventions Patient/Client Instruction: Educate patient on: Condition, Plan of Care and Risk Factors For the Purpose of:: To improve self management Therapeutic Exercise to Include: Strength training, Postural training, Flexibilty training and Neuromotor development For the Purpose of:: To decrease pain, To improve nutrient delivery to tissue, To increase oxygenation perfusion, To improve muscle performance and motor function, To increase tolerance to activity/condition/position, To improve ability of physical actions for home/community/work/leisure, To improve health of tissue and To improve self management Cryotherapy (ice pack, ice massage): Yes Thermo therapy (hot pack): Yes For the Purpose of:: To decrease pain, To decrease swelling/inflammation and To improve nutrient delivery to tissue Text: Thank you for the opportunity to evaluate your patient. For Medicare and Medicare HMO plans, please review the plan of care and approve it. It will need to be FAXED BACK to us at [phone] for Medicare purposes. For Medicare only, by signing this I certify the plan of care. Please let me know if there are questions or concerns regarding this plan of care. Physician Signature: Date:
--- NOTE | 2025-03-14 11:07 | HP.PTDCSUM_ITS ---
Discharge Summary D/C summary: It has been my pleasure to treat JUMA MACEDO referred by Dr. Madelyn Sandoval DO, with the diagnosis of R SHLD PAIN for a total of 10 visit(s). Discharge Date: 03/14/25 Please see the following information for a summary of their discharge status. Subjective Subjective: PATIENT REPORTS HER SHOULDER IS AT LEAST 90% BETTER. SHE REPORTS IT ACHES SOMETIMES BUT WHEN IT DOES SHE IS USUALLY ACHING ALL OVER. SHE REPORTS SHE SHE HAS BEEN DOING HER HOME EX PROGRAM AND SHE JOINED [employer] TO CONTINUE STRENGTHENING IN GENERAL. 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 PATIENT STATES SHE FEELS SHE KNOWS WHAT TO DO FOR HER SHOULDER NOW AND IS READY TO BE DISCHARGED. SHE PLANS TO CONTINUE WITH HER HOME EX PROGRAM UNTIL AT LEAST THE BEGINNING OF THE NEW YEAR BEFORE TRYING TO START IN THE GYM. Pain R Shoulder: Pain Intensity (Out of 10): 0 Overall Improvement % Improvement: 90 Objective Objective/Function: PATIENT WAS SEEN TODAY FOR RE-ASSESSMENT OF PROGRESS TOWARD THE SET PT GOALS AND THE NEED FOR FURTHER PHYSICAL THERAPY VS READINESS FOR DISCHARGE. UPON EXAM TODAY: ROM deficit: ACTIVE ROM: R SHLD FLEX 165 DEG FLEX, 167 DEG ABD. SUPINE PASSIVE FLEXION 165 DEG, ABD 165 DEG, IR/ER 90 DEG. ABLE TO ELEVATE L SHLD TO 160 DEG FLEX - DENIES PAIN. Motor deficit: R SHLD FLEX 4/5, ABD 4-/5, IR 4/5, ER 4/5, ELBOW 5/5, R SENIOR WATER/WASTEWATER ENGINEER 55 LBS. L SHLD 4/5, ELBOW 5/5, SENIOR WATER/WASTEWATER ENGINEER 45 LBS. R HAND DOMINANT. Goals Goal 1:: DECREASE C/O R SHLD PAIN BY AT LEAST 50% TO EASE ADL AND WORK FUNCTION Goal Progress: Goal Met Goal 2:: INCREASE PAINFREE R SHLD ROM ALL PLANES TO IMPROVE ADL AND WORK FUNCTION Goal Progress: Goal Met Goal 3:: IMPROVE R SHLD STRENGTH BY 1/2 GRADE OF ALL EFFECTED MUSCULATURE. Goal Progress: Goal Met Goal 4:: INDEP HEP Goal Progress: Goal Met Plan Plan: D/C TO HEP. PATIENT AGREEABLE D/C Information d/c sentence: If there are questions or concerns regarding this patient's physical therapy, please feel free to call me at [phone]. Thank you for the referral of this patient. Sincerely, Kelsey Walker, PT, Cert MDT Balance/Gait/Functional tests Balance/Special Test Scores Quick DASH Score: 6.8175 Improvement % Improvement: 90
== END 2025-03-14 13:47 | disposition home or self-care (01) ==
LOC: PT 10:30
PROVIDERS: PCP Internal Medicine; Referring Provider Internal Medicine; Visit Provider Internal Medicine
DX: M25.511 Pain in right shoulder (principal)
CPT/HCPCS: 97110; 97162; 97530